=== PATIENT | female | born 1970 | race Two or more races ===

== ENCOUNTER 2020-05-05 17:14 | Emergency (ER) | payer OTHER ==
[~2020-05-05] VITALS: Ht 172.7 cm; Wt 118.8 kg
[2020-05-05] MEDS ORDERED: SEGLUROMET 7.51 EAC1 PO (17:29)
[2020-05-05] MEDS ORDERED: NEURONTIN600 M1 PO (17:30)
[2020-05-05] MEDS ORDERED: RELAFEN DS1000 MG PO (17:30)
== END 2020-05-05 20:26 | disposition left against medical advice (07) ==
LOC: ER 17:14
DX: M54.2 Cervicalgia (principal)
CPT/HCPCS: 72141